=== PATIENT | male | born 1940 | race Caucasian/White ===

== ENCOUNTER 2016-06-29 14:29 | Inpatient (IN) | payer OTHER ==
[2016-06-28 17:46] LABS: HEMATOCRIT 39.4 % (40.0-51.0); HEMOGLOBIN 12.4 g/dL (13.6-17.8); MEAN CORPUS HGB CONC 31.5 g/dL (32.0-36.0); MEAN CORPUSCULAR HEMOGLOB 29.7 pg (26.0-34.0); MEAN CORPUSCULAR VOLUME 94.5 fL (80-100); MEAN PLATELET VOLUME 11.4 fL (9.2-13.0); PLATELET COUNT 175 10/3/uL (150-400); RBC DISTRIBUTION WIDTH 16.2 % (12.0-16.0); RED CELL COUNT 4.17 10/6/uL (4.7-6.1); WHITE BLOOD CELLS 6.6 10/3/uL (4.5-10.5)
[2016-06-28 17:57] LABS: A/G RATIO 0.5 (0.7-1.9); ALBUMIN 2.5 G/DL (3.5-5.0); ALKALINE PHOSPHATASE 264 U/L (45-117); BUN (BLOOD UREA NITROGEN) 24 MG/DL (6-23); CALCIUM, SERUM 8.8 MG/DL (8.5-10.4); CHLORIDE, SERUM 111 MMOL/L (96-112); CHOL/HDL RATIO(NOT ORDER) 1.9 (0-5); CHOLESTEROL 93 MG/DL (< 200); CO2 (CARBON DIOXIDE) 29 MMOL/L (24-34); CREATININE 0.93 MG/DL (0.70-1.30); GFR AFRICAN AMERICAN 93 ML/MIN (>=60); GFR NON AFRICAN AMERICAN 81 ML/MIN (>=60); GLOBULIN 5.2 G/DL (2.5-4.1); GLUCOSE, SERUM 61 MG/DL (60-99); HDL CHOLESTEROL 48 MG/DL (> 39); LDL CHOLESTEROL 30 MG/DL (< 130); NON-HDL CHOLESTEROL 45 MG/DL (< 160); POTASSIUM, SERUM 5.3 MMOL/L (3.5-5.3); SGOT(AST) 76 U/L (5-40); SGPT(ALT) 36 U/L (5-65); SODIUM, SERUM 149 MMOL/L (135-148); TOTAL BILIRUBIN 0.8 MG/DL (0-1.2); TOTAL PROTEIN 7.7 G/DL (6.0-8.5); TRIGLYCERIDE 77 MG/DL (< 150)
[2016-06-28 23:13] LABS: MICROALBUMIN, RANDOM URINE 1.6 MG/DL
--- NOTE | ~2016-06-29 | OP ---
Record Of Operation [facility] [address] [place]. [address] NAME: JAIMIE WATSON : 44 STATUS : ADM IN [facility]#: [id number] AGE: 76 ADM/REG DATE : 06/29/16 MR#: [id number] REPORT SERV DATE: 07/03/16 DICTATED BY: MIREYA VILLAGOMEZ DATE: 07/03/16 REPORT STATUS : Draft TRANSCRIBED BY: MODL DATE: 07/03/16 DATE OF PROCEDURE: 07/04/2016 PREOPERATIVE DIAGNOSIS: Gallstones with repeated hospitalizations for biliary pancreatitis and elevated liver function. POSTOPERATIVE DIAGNOSIS: Gallstones with repeated hospitalizations for biliary pancreatitis and elevated liver function with considerable intraabdominal adhesions. PROCEDURE: Laparoscopic cholecystectomy with intraoperative cholangiogram as well as lysis of adhesions. SURGEON: Mireya Villagomez M.D. ANESTHESIA: General endotracheal. ESTIMATED BLOOD LOSS: Nil. FLUIDS: Crystalloid. SPECIMEN: Gallbladder. DRAINS: A 15 fluted subhepatic. COMPLICATIONS: None immediate. CONDITION: Fair. INDICATIONS: Mr. Watson is a 76-year-old who is in poor health. 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 PEG feeding tube dependent. Suffers from diabetes. Previously, he has had appendectomy via a long right paramedian incision. He has been to the hospital twice in the last 6 weeks with abdominal pain, elevated liver and pancreatic enzymes, which have normalized. He has known gallstones. On this admission, Surgery was consulted and it was felt appropriate to proceed with cholecystectomy to try to prevent future bouts. After a thorough review of risks, benefits, options, side effects with the patient and family we are proceeding. PROCEDURE IN DETAIL: After being identified in preop holding, he was brought to the OR and positioned supine. General endotracheal anesthesia was induced. Time-out was performed. He was on Zosyn antibiotic therapy. The abdomen was prepped and draped sterilely. Somewhat above the most upper extent of the right paramedian incision, I infiltrated Marcaine. Made a transverse incision, dissected through the subcu and exposed the fascia midline. This was opened transversely, 0 Vicryl traction sutures were placed. We carefully dissected into the preperitoneal plane. We were ultimately able to identify and open the peritoneum and encounter what was palpably an open peritoneal cavity. Kellen trocar was inserted and Record Of Operation [facility] [address] [place]. [address] NAME: JAIMIE WATSON : 42 STATUS : ADM IN PAT#: [id number] AGE: 76 ADM/REG DATE : 06/29/16 MR#: [id number] REPORT SERV DATE: 07/03/16 DICTATED BY: MIREYA VILLAGOMEZ DATE: 07/03/16 REPORT STATUS : Draft TRANSCRIBED BY: MODL DATE: 07/03/16 anchored with the Vicryl and insufflated with 15 mm carbon dioxide pneumoperitoneum. 30 degree laparoscope was inserted within the peritoneal cavity. There was a cirrhotic liver evident. There was gallbladder evident. There was a considerable amount of adhesion in the left lateral where the PEG tube was. There was a considerable amount of adhesion inferiorly where the paramedian incision was, but on the right-hand side around the liver and right abdomen all was clear. There was adhesion in the right lower quadrant from the prior appendectomy, but we appeared to have an adequate open field to pursue a laparoscopic cholecystectomy. I palpated the abdomen, then we encountered the junction of the adhesions in the free peritoneal cavity, a bit to the right of the umbilicus, and at this point we advanced the local anesthetic needle. I could see entering the free peritoneal cavity clear of adhesions. At this point, we broadly infiltrated a transverse incision and then inserted a 5 mm trocar into the peritoneal cavity as visualized through laparoscope. Laparoscope was now moved to this position and after Marcaine infiltration and appropriate skin incisions, 5 mm trocars were inserted subcostally on the right, the midclavicular and anterior axillary line. We used a combination of scissor and an atraumatic grasper and dissected the adhesions between the greater omentum in the anterior abdominal wall around the subxiphoid access point. We were able to identify adherent fat. There was no bowel adhering. We carefully visualized for certainty and once we had thoroughly cleared the access path, a Kellen trocar was then placed. We now proceeded with the cholecystectomy. The patient was turned head up, foot down, rolled right side up. We grasped and elevated the gallbladder, which immediately tore and spilled green bile. There was no stone spillage. We regrasped, retracted and were able to expose what appeared to be the gallbladder cystic duct junction. This was encased in fat. Peritoneum, fat and the area the neck of the gallbladder was open, and I was able to identify and dissect rather small caliber cystic duct egressing the gallbladder. This was milked towards the gallbladder and an occlusive clip was placed across the neck. The gallbladder itself seemed to contain a large stone. Now I made a cystic ductotomy and advanced and anchored a cholangiogram catheter. Fluoroscopy was brought on the field. The cholangiography revealed a rather short cystic duct coursing into a somewhat generous common bile duct. There was rather prompt movement of contrast distal and into the duodenum. I did not see reflux into the pancreatic duct. With additional contrast instillation, I was able to opacify and identify the proper hepatic duct and the left and right hepatic duct. Again, the duct was somewhat generous, but there were no filling defects and there was prompt flow of contrast into the duodenum. I took fluoroscopy off the field and reinserted a laparoscopic instrumentation. Gallbladder was re-retracted. Cholangiogram catheter was removed, and the cystic duct was clipped occlusively x3 on the common bile duct side of cannulation and the cystic duct was divided at the point of cannulation. We now dissected in Calot's triangle and identified and dissected a dominant cystic artery. This was immediately behind the lymph node. This was dissected, clipped x3, divided between the middle clip and clip on gallbladder. Finally, I used hook electrocautery to dissect the gallbladder out of the gallbladder fossa. This went smoothly without getting in the liver or the gallbladder. Once the gallbladder was placed in an EndoCatch, it was extracted out the subxiphoid trocar path after fascial Record Of Operation [address] [place]. [address] NAME: JAIMIE WATSON : 44 STATUS : ADM IN [facility]#: [id number] AGE: 76 ADM/REG DATE : 06/29/16 MR#: [id number] REPORT SERV DATE: 07/03/16 DICTATED BY: MIREYA VILLAGOMEZ DATE: 07/03/16 REPORT STATUS : Draft TRANSCRIBED BY: MODL DATE: 07/03/16 and skin incisions were extended. We now reinserted the Kellen trocar, thoroughly suctioned all sub and suprahepatic fluid, and inspected the operative field. We had good clip positioning. No bleeding. No evidence of bile leak. We advanced a 15 fluted drain down the lateral right subcostal trocar, positioned it subhepatic and anchored it as I egressed the skin with a 3-0 nylon. The upper abdominal trocars were now removed with the visualization through laparoscope. There was no bleeding. Abdomen was desufflated and the right paraumbilical trocar was removed. Subxiphoid fascia had about 4-5 cm opening. This was closed with a running single stranded 0 PDS. Dermis was closed and the remaining skin incisions with a 4-0 Monocryl followed by Benzoin, Steri-Strips, and sterile dressing. Again, the drain was anchored with 3-0 nylon. Sterile dressing applied. Bulb suction was applied. Mr. Watson was recovered from his anesthetic, and transferred to recovery room in good condition. He did require pressors intraoperatively, but seemed to tolerate surgery well. XIMENA/JERONIMO Mireya Villagomez M.D. / [id number] CC: MD Wilfred Rivera III, D.O.
--- NOTE | ~2016-06-29 | CN ---
Consultation Report [facility] [address] [place]. [address] NAME: JAIMIE MCCORMICK : 44 STATUS : ADM IN [facility]#: [id number] AGE: 76 ADM/REG DATE : 06/29/16 MR#: [id number] REPORT SERV DATE: 07/01/16 DICTATED BY: JAYDEN LUNDY III DATE: 07/01/16 REPORT STATUS : Draft TRANSCRIBED BY: MODL DATE: 07/01/16 DATE OF CONSULTATION: 07/01/2016 REASON FOR CONSULT: 1. Abdominal pain. 2. Biliary pancreatitis, cholelithiasis, and possible obstructive jaundice. 3. Recommendation regarding surgical management. HISTORY OF PRESENT ILLNESS: We are asked to see this 76-year-old male in the hospital for the above reasons. The patient complains of a several-week history of intermittent episodes of upper abdominal discomfort and pain. He presented to the emergency room in the past for these symptoms. The patient complains of chills. He complains of nausea and vomiting. The patient presented to the emergency room and was found to have evidence for biliary pancreatitis. He was admitted to the patient on 06/29/2016. The patient states that he feels better at this time. The patient's lipase on admission was over 19,000. PAST MEDICAL HISTORY: 1. History of hearing deficit. 2. Coronary artery disease. 3. History of coronary artery bypass graft in the past. 4. History of PEG tube placement. 5. History of open appendectomy. 6. History of congestive heart failure. 7. History of pulmonary embolus and deep venous thrombosis in the past. 8. Hypertension. 9. History of COPD. PAST SURGERIES: Include cholecystectomy, open appendectomy through a long midline incision, and PEG tube placement. REVIEW OF SYSTEMS: The patient has a history of dysphagia, for which his PEG tube apparently was placed. He has not been using the PEG tube in some time. The patient has a history of diabetes, peripheral vascular disease, hyperlipidemia, and depression. SOCIAL HISTORY: No history of tobacco or alcohol use. The patient is retired. FAMILY HISTORY: Unremarkable. ALLERGIES: NONSTEROIDAL ANTI-INFLAMMATORY MEDICATIONS, PIROXICAM, AND METFORMIN. MEDICATIONS: At home include ProAir, albuterol, vitamin C, aspirin, Lipitor, iron, Proventil, insulin, Neurontin, Lasix, Antivert, Protonix, Florastor, and trazodone. Consultation Report [facility] [address] [place]. [address] NAME: JAIMIE MCCORMICK : 42 STATUS : ADM IN PAT#: [id number] AGE: 76 ADM/REG DATE : 06/29/16 MR#: [id number] REPORT SERV DATE: 07/01/16 DICTATED BY: JAYDEN LUNDY III DATE: 07/01/16 REPORT STATUS : Draft TRANSCRIBED BY: JERONIMO DATE: 07/01/16 OBJECTIVE PHYSICAL EXAMINATION: GENERAL: This is a male, in no acute distress. He is alert and oriented x3. VITAL SIGNS: Blood pressure 140/63, temperature 97.5, pulse 78. HEENT: Unremarkable. Cranial nerves II through XII are normal. LUNGS: Clear. CARDIAC: Normal. ABDOMEN: Soft and nontender. He has a long midline incision extending above the navel. He has a PEG tube in place in the left upper quadrant. EXTREMITIES: Normal. LABORATORY DATA: MRI of the abdomen, which I reviewed, shows gallstones. No common bile duct stones are seen. Gallbladder ultrasound on 06/30/2016 showed a 3.3-cm gallstone with thickening of the gallbladder wall with no biliary dilatation. CT scan of the abdomen and pelvis on 06/29/2016 showed a prominent common bile duct with a possible stone in the distal common bile duct at the ampulla concerning for choledocholith. There was haziness around the pancreas consistent with pancreatitis. The gallbladder was noted to contain a stone. It should be noted that the patient had a CT scan of the abdomen and pelvis apparently on ER visit on 06/08/2016. He was noted to have a gallstone at that time. The patient's electrolytes were normal. His lipase was initially elevated at greater than 19,000. It has now decreased to 1027. Total bilirubin is 1.9. It was 3.4 yesterday. White blood cell count 5.3. ASSESSMENT: 1. A 76-year-old male with resolving biliary pancreatitis. 2. Cholelithiasis and chronic cholecystitis. 3. Probable choledocholithiasis, with the patient most likely passing a common bile duct stone based on improving lipase, bilirubin, and absence of stones seen on MRI. 4. Chronic obstructive pulmonary disease. 5. Peripheral vascular disease. 6. History of previous open appendectomy through a midline incision with a previous percutaneous endoscopic gastrostomy tube placement. 7. Coronary artery disease. 8. Hyperlipidemia. 9. Depression. 10.Diabetes mellitus. PLAN: The patient is stable at this time. His pancreatitis is resolving. I believe the patient will need a laparoscopic cholecystectomy, possible laparotomy on this admission. I believe the ERCP could be deferred, but defer to Dr. Smith's judgment regarding this. If ERCP is not performed, then I believe we can proceed with a laparoscopic cholecystectomy with intraoperative cholangiogram, possible laparotomy. Dr. Villagomez will be covering for me after today and we will make the final decision regarding this. I have discussed this with the patient's family. The procedure will be a Consultation Report [address] [address] NAME: JAIMIE MCCORMICK : 42 STATUS : ADM IN [facility]#: [id number] AGE: 76 ADM/REG DATE : 06/29/16 MR#: [id number] REPORT SERV DATE: 07/01/16 DICTATED BY: JAYDEN LUNDY III DATE: 07/01/16 REPORT STATUS : Draft TRANSCRIBED BY: JERONIMO DATE: 07/01/16 laparoscopic cholecystectomy, possible laparotomy. This procedure, the risks, benefits, and alternatives, including, but not limited to the risk for bleeding, infection, common bile duct injury, bile leak, retained common bile stone, enterotomy, injury to any abdominal structure, the definite possible need for laparotomy, possible persistence of his symptoms unrelieved by surgery, possibly postoperative diarrhea or incisional hernia, and unforeseen complications including deep venous thrombosis, pulmonary embolus, myocardial infarction, stroke, pneumonia, and , have been fully and completely explained to them at length prior to surgery. The fact that this is a major operation with risk for major morbidity and mortality has been explained. Their questions have been answered. They understand the risks and agreed to surgery as planned. PAUL/JERONIMO Jayden Lundy III, M.D. / [id number] CC: MD Wilfred Rivera III, D.O.
--- NOTE | ~2016-06-29 | HP ---
History And Physical [place] [address] [facility] [place]. [address] NAME: JAIMIE MCCORMICK : 42 STATUS : ADM IN PAT#: [id number] AGE: 76 ADM/REG DATE : 06/29/16 MR#: [id number] REPORT SERV DATE: 06/29/16 DICTATED BY: GINA SILVERMAN DATE: 06/29/16 REPORT STATUS : Draft TRANSCRIBED BY: MODL DATE: 06/29/16 DATE OF ADMISSION: 06/29/2016 REASON FOR ADMISSION: Abdominal pain. HPI: This is a 76-year-old, male. He has a known history of CAD with CABG; history dysphasia in the past, required a PEG tube due to recurrent aspiration risk; chronic systolic heart failure, LVEF 46% in the past; history of PE and DVT; hypertension; history of ESBL and Pseudomonas and history of COPD. Known surgical history of foot surgery, bilateral knee surgery, cholecystectomy. Supposedly, per history, family states he does have his gallbladder. History of appendectomy, history of esophageal varices per prior dictation, PAD as well, carotid stenosis, vocal cord paralysis history. The patient comes in after weeks ago having similar presentation of postprandial burning and epigastric pain that he came here to the ER weeks ago and lipasemia of 2000. Had resolved spontaneously. Had a CT, did show gallstone. Gallbladder otherwise unremarkable, within good position. It was on 06/08/2014. Now, the patient comes in with positive chills. No fevers. Positive nausea. Positive bilious emesis. No diarrhea. No chest pain. No chest pressure. Positive shortness of breath. Positive productive yellow-green cough, with noted again epigastric abdominal pain. It has been occurring for the past day. Is worsened with food as a result, has a decreased appetite. Seen now to have a lipasemia of 19,000, AST over ALT 157/57, but alkaline phosphatase is 294. Troponin is negative. Initially, he was hypotensive in the 80s. Got a 0.5 L bolus. Now he is 120 systolic. The patient had a CT that is pending. Has not going to CT yet and was called for admission. The patient is hard of hearing. He is A and O x4/4. GCS of 15. MEDICAL AND PAST SURGICAL HISTORY: See above. REVIEW OF SYSTEMS: See HPI. Otherwise, negative. ALLERGIES: APPARENTLY METFORMIN AND SOME NSAIDS, BUT APPARENTLY THE PATIENT TAKES ASPIRIN AN OUTPATIENT. SOCIAL: Lives at home. Does not smoke actively, drink, or do drugs. Used to smoke many years ago and smoked cigars. FAMILY HISTORY: Hypertension in at least one parent. HOME MEDICATIONS: See MAR. We will continue what is relevant. OBJECTIVE: VITAL SIGNS: 120 systolic from 82, temp 98.6, 97 pulse, 18 respirations, 93% on room air. Now he is 98 on 2 L. History And Physical [address] [address] NAME: JAIMIE MCCORMICK : 44 STATUS : ADM IN [facility]#: [id number] AGE: 76 ADM/REG DATE : 06/29/16 MR#: [id number] REPORT SERV DATE: 06/29/16 DICTATED BY: GINA SILVERMAN DATE: 06/29/16 REPORT STATUS : Draft TRANSCRIBED BY: JERONIMO DATE: 06/29/16 GENERAL: No acute distress. HEENT: PERRLA. No scleral icterus. CARDIOVASCULAR: Regular rate and rhythm. No murmur auscultated. RESPIRATORY: Decreased breath sounds bibasilarly. Bibasilar crackles. ABDOMEN: Positive tenderness to palpation around the PEG site and superior to that epigastric region. EXTREMITIES: No edema. No ecchymosis. NEURO: GCS 15. A and O x4/4. PSYCH: Mildly anxious. LABORATORY DATA: White count is 10.3, hemoglobin 11.6 and 176,000 platelets. 4.3 potassium, 28 bicarbonate, 0.97 creatinine, 23 BUN, 143 sodium, 76 sugar. Lipasemia over 19,000. AST/ALT 157/57, alkaline phosphatase elevated 290, albumin 2.2. CT of abdomen and pelvis is pending. Chest x-ray, we will go ahead and get an x-ray which is pending. EKG, he has a normal sinus rhythm artifact. No ischemic ST-T changes noted. ASSESSMENT AND PLAN: 1. Sepsis, systemic inflammatory response syndrome criteria being met. Possible pneumonia. 2. Mild acute hypoxic respiratory failure. 3. Lipasemia with cholestatic transaminitis possibly due to a choledocholithiasis. 4. History of dysphagia with PEG. Apparently, the patient now wants the PEG to be removed. No longer has dysphagia per history. We would need a Speech Study to evaluate that veracity. 5. Clinical chronic obstructive pulmonary disease, acute exacerbation. I do not hear any active wheezing. Given productive cough, increased shortness of breath, did 3/3 GOLD criteria. PLAN: Admit this patient to Dr. Salvador's Cardiac Tele Service. The patient has recently been on 2 rounds of unknown antibiotics for UTI. As a result, I will place the patient empirically on IV Zosyn. Noted history of ESBL. Last time he was hospitalized, ID did not think was pathogenic, thought to be more colonized. Will not escalate if not profoundly septic to require Merrem at this time, would have low threshold to do so. Get a CT abdomen and pelvis, and a right upper quadrant ultrasound. He indeed does have choledocholithiasis. Will need ERCP and likely cholecystectomy. We will have GI evaluate at this time. We will swab for influenza. Placed on IV Solu-Medrol, Spiriva, bronchodilator protocol. Given other 0.5 L normal saline bolus, as indeed was 83 initially, now [address] on IV PPI. All questions were answered. It took well over 60 minutes to do reference, [employer] and [employer]. Please see rest of my orders including D5, LR, and n.p.o. except medicine and ice chips. WST/MODL History And Physical [address] [address] NAME: JAIMIE MCCORMICK : 42 STATUS : ADM IN PAT#: [id number] AGE: 76 ADM/REG DATE : 06/29/16 MR#: [id number] REPORT SERV DATE: 06/29/16 DICTATED BY: GINA SILVERMAN DATE: 06/29/16 REPORT STATUS : Draft TRANSCRIBED BY: MODL DATE: 06/29/16 Gina Silverman DO / [id number] CC: MD Wilfred Rivera III, D.OLeah
--- NOTE | ~2016-06-29 | IDS ---
Interim Discharge Summary [facility] [address] [place]. [address] NAME: JAIMIE MCCORIMCK : 44 STATUS : ADM IN PAT#: [id number] AGE: 76 ADM/REG DATE : 06/29/16 MR#: [id number] REPORT SERV DATE: 07/03/16 DICTATED BY: ANITRA SALVADOR DATE: 07/03/16 REPORT STATUS : Draft TRANSCRIBED BY: MODL DATE: 07/03/16 ADMISSION DATE: 06/29/2016 DISCHARGE DATE: REASON FOR ADMISSION: Acute biliary pancreatitis and cholelithiasis. HPI: Please refer Dr. Howard Webster's history and physical dated 06/29/2016 for complete details on the patient's admission. In brief, the patient was admitted to the Hospitalist Service for his biliary pancreatitis. HOSPITAL COURSE: Patient presented with a lipase level of around 19,000 and some epigastric abdominal pain. He had a CT scan of his abdomen and pelvis done without contrast, which showed a new prominence of the common bile duct up to 10 mm in diameter with what appears to be a 5 mm hyperdensity within the distal common duct concerning for an obstructing choledocholith. There is some mild haziness in that plane suggesting pancreatitis. There is distended gallbladder, dense atelectasis, and consolidation within the posterior basilar left lower lobe. Dr. Gus Webster had started him on Zosyn for possible sepsis and pneumonia, but we do not think this was the case. Urine culture was obtained, which showed ESBL E coli. Of note, he did have a positive ESBL E coli urine culture that was done by his PCP as the family relayed this information to us. He had a right upper quadrant ultrasound done after his CAT scan which showed a 3.3 cm gallstone with borderline thickening of the gallbladder wall, no dilatation was demonstrated. GI Medicine was consulted. [facility] had recommended getting an MRCP to tell that he probably passed a stone and did not have an obstructing stone at this point in time. MRCP just showed gallstones and the common bile duct is not dilated. With these findings, GI Medicine felt that an ERCP was not warranted and recommended consulting Dr. Raya to remove his gallbladder. The patient is scheduled today on the to have his gallbladder removed. He has been on Zosyn several days for his ESBL E coli urinary tract infection. The patient continues to have dysphagia and probable aspiration. He has not used his PEG tube in around a year. He continues to eat by mouth knowing that he continues to aspirate. He has not had a swallow study in over a year. I had a long discussion regarding code status, and the patient made it clear that he wishes to be a full code even though he knows he is placing himself at risk by eating everything by mouth. A modified barium swallow study scheduled to be done on Sunday, however, the family has indicated that they do not wish for that speech eval to delay his discharge and going home as they can do this as an outpatient. Further care per oncoming hospitalist to start on the . DISPOSITION: Patient will be anticipated discharge home on Sunday or Sunday pending his recovery from surgery and Dr. Raya' recommendations. He is scheduled to have modified barium swallow study done on Sunday, however, if he is okay to be discharged home from Dr. Raya' standpoint on Sunday, the family wishes this test to be done as an outpatient. Of note, we did start him on some tube feeds, which he is tolerating fine. Zosyn can be switched over to Augmentin for treatment of his ESBL E coli at the time of discharge. INTERIM SUMMARY DIAGNOSES: 1. Acute biliary pancreatitis. Interim Discharge Summary [address] [address] NAME: JAIMIE MCCORMICK : 44 STATUS : ADM IN [facility]#: [id number] AGE: 76 ADM/REG DATE : 06/29/16 MR#: [id number] REPORT SERV DATE: 07/03/16 DICTATED BY: ANITRA SALVADOR DATE: 07/03/16 REPORT STATUS : Draft TRANSCRIBED BY: MODL DATE: 07/03/16 2. Chronic obstructive pulmonary disease without exacerbation. 3. Dysphagia with possible vocal cord paralysis. 4. Extended-spectrum beta-lactamase E coli urinary tract infection. 5. History of deep venous thrombosis/pulmonary embolism. 6. Cardiomyopathy with an EF of 45%. PROCEDURES: Include CT scan of the abdomen and pelvis, right upper quadrant ultrasound, MRCP consistent with [facility] consultation with Dr. Raya. HELENA/JERONIMO Anitra Salvador MD / [id number] CC: MD Wilfred Rivera III, D.O.
--- NOTE | ~2016-06-29 | DS ---
Discharge Summary [facility] [address] [place]. [address] NAME: JAIMIE MCCORMICK : 44 STATUS : DIS IN PAT#: [id number] AGE: 76 ADM/REG DATE : 06/29/16 MR#: [id number] REPORT SERV DATE: 07/06/16 DICTATED BY: BRENNA OSULLIVAN DATE: 07/05/16 REPORT STATUS : Draft TRANSCRIBED BY: MODL DATE: 07/05/16 ADMISSION DATE: 06/29/2016 DISCHARGE DATE: 07/05/2016 DISCHARGE DIAGNOSES: 1. Acute biliary pancreatitis, resolved, status post laparoscopic cholecystectomy. 2. Chronic dysphagia. The patient already has had a PEG tube insertion, we started him on tube feeding after we confirmed with the modified barium swallow that the patient is having silent aspiration. I had a conversation with Dr. Salvador in a lengthy manner with the patient and family, but they still wished to be full code and eating by mouth. We are continuing the tube feeding only while he is the hospital and recommended tube feeding medically. 3. Chronic obstructive pulmonary disease. 4. Obesity. 5. Chronic heart failure, systolic dysfunction. FAN BALANCER: 1. Wilfred Smith MD. 2. Dr. Raya. PROCEDURE: Laparoscopic cholecystectomy. HISTORY OF PRESENT ILLNESS: This is a 76-year-old male patient, who has multiple medical problems including heart failure, dysphagia, aspiration, and COPD, who came to the hospital with abdominal pain. Please see the dictated H and P. HOSPITAL COURSE: He was admitted to the hospital with acute pancreatitis and was having evaluation for the pancreatitis etiology. Was found to have cholelithiasis and improved with conservative manner. The patient had a repeat MRI done and did not show anything or common bile duct stones. After his pancreatitis had stabilized, the patient was consulted to Dr. Raya. Dr. Todd did laparoscopic cholecystectomy on 07/04/2016. He is recovering very well. He does have a chronic dysphagia, but he was having oral feeding at home. He had a modified barium swallow on this admission, and it showed silent aspiration. Therefore, the patient was started on tube feeding during this hospitalization. Please see dictated interim discharge summary done by Dr. Salvador. According to Dr. Salvador, the patient and family had a long conversation with Dr. Salvador regarding his feeding issue and dysphagia issue and medical recommendation. The patient wishes to be full code but also he wants to have oral feeding even after all these recommendations. While he was here, we continued tube feeding only, nothing by mouth. The patient sees Dr. Cruz as an outpatient for his gastroenterology issue, needs to follow up with him for further recommendation. Maximized inpatient benefit, will be discharged to home. Discharge Summary [address] [place]. [address] NAME: JAIMIE MCCORMICK : 44 STATUS : DIS IN PAT#: [id number] AGE: 76 ADM/REG DATE : 06/29/16 MR#: [id number] REPORT SERV DATE: 07/06/16 DICTATED BY: BRENNA OSULLIVAN DATE: 07/05/16 REPORT STATUS : Draft TRANSCRIBED BY: JERONIMO DATE: 07/05/16 DISCHARGE MEDICATIONS: 1. Aspirin 81 mg once a day. 2. Lipitor 40 mg once at nighttime. 3. Ferrous sulfate 325 mg once a day. 4. Lasix 40 mg once a day. 5. Neurontin 100 mg twice a day. 6. Lantus was decreased to 16 units at bedtime. 7. Mag-Ox 400 mg once a day. 8. Protonix 40 mg once a day. 9. Florastor 250 mg once a day. 10.Trazodone 150 mg once at nighttime. 11.Albuterol as needed. 12.ProAir as needed. 13.Vitamin C once a day. 14.Lisinopril 2.5 mg once a day. 15.Antivert as needed. DISPOSITION: The patient is discharged to home. Initially, the patient was referred to correction facility for rehabilitation after the discharge, but the patient and family refused for correction facility rehabilitation. The patient is discharged to home with family. Time spent was more than 30 minutes on coordination and education. EKL/MODL Brenna Osullivan M.D. / [id number] CC: Lore Joy III, D.O.
--- NOTE | ~2016-06-29 | CN ---
Consultation Report [facility] [address] [place]. [address] NAME: JAIMIE WATSON : 44 STATUS : ADM IN [facility]#: [id number] AGE: 76 ADM/REG DATE : 06/29/16 MR#: [id number] REPORT SERV DATE: 06/30/16 DICTATED BY: BRAD FONG DATE: 06/30/16 REPORT STATUS : Draft TRANSCRIBED BY: MODL DATE: 06/30/16 GI CONSULTATION DATE OF CONSULTATION: 06/30/2016 REASON FOR CONSULTATION: Evaluation and management of question of choledocholithiasis, epigastric abdominal pain, elevated LFTs. HISTORY OF PRESENT ILLNESS: Mr. Watson is a 76-year-old male patient, who is known to Dr. Nando Cruz, whom we have seen in the past for history of dysphagia with PEG tube being placed. The patient and the daughter tell me that on this admission, he has been having abdominal pain, he awoke suddenly with it yesterday morning and he had nausea with vomiting, did not vomit anything that looked like blood. Per the daughter's report, his pain intensified, thus prompting him to come to the emergency room for further evaluation. She states that he had a similar episode several weeks ago of epigastric pain. ER visit showed elevated lipase, but this resolved on its own with the CT only showing a gallstone. He states that he has been having some chills, but no documented fevers. Persistent nausea. No shortness of breath, no chest pain. Positive for cough, which the daughter states is chronic. He states that the pain was made worse at times by eating. On admission, he had a lipase level of 19,441; lactate of 2.6; total bilirubin of 2.5, alkaline phosphatase 294, ALT 57, AST 157. CT scan of the abdomen, this was noncontrasted, showed prominence of the common bile duct to 10 mm with a 5 mm hyperdensity in the distal common bile duct/ampulla, consistent with gallstones, as well as inflammation around the pancreas, consistent with acute pancreatitis. He underwent a gallbladder ultrasound today, which showed a 3.3 cm gallstone with borderline thickening of the gallbladder wall with no biliary dilation being seen. On exam, he states his pain is improved. He is sore in his epigastric area, but states that the acute pains he was having that brought him in have resolved. I have discussed with the patient as well as the patient's daughter as well as Dr. Smith, who is present at the bedside, with a normal ultrasound, we will send him for an MRCP prior to any ERCP being done. I also discussed with him I will have a surgeon see him for possible cholecystectomy secondary to biliary pancreatitis while he is inpatient. Of note, the daughter is also asking that the patient's PEG tube be removed prior to discharge secondary to no use in over eight months. I did discuss with her that the last time they wanted to remove he failed a swallowing study and would recommend a speech path evaluation prior to any removal of his feeding tube. She states that even with the feeding tube, he is not going to use it and requests that it be removed for he can eat. PAST MEDICAL HISTORY: Positive for type 2 diabetes, hypertension, coronary artery disease, COPD, peripheral vascular disease, dyslipidemia, depression, oropharyngeal dysphagia, carotid stenosis, ESBL Pseudomonas UTI, DVT, systolic CHF, recurrent aspiration with PEG tube, PEG tube cellulitis, esophageal varices grade 1 on last endoscopy, pleural effusion with history of thoracentesis, vocal cord paralysis, and NH. PAST SURGICAL HISTORY: Foot surgery, bilateral knee surgery, appendectomy, PEG tube Consultation Report [address] [place]. [address] NAME: JAIMIE WATSON : 44 STATUS : ADM IN [facility]#: [id number] AGE: 76 ADM/REG DATE : 06/29/16 MR#: [id number] REPORT SERV DATE: 06/30/16 DICTATED BY: BRAD FONG DATE: 06/30/16 REPORT STATUS : Draft TRANSCRIBED BY: JERONIMO DATE: 06/30/16 placement, and CABG. SOCIAL HISTORY: Negative for alcohol. Negative for illicits. Negative for tobacco. He has a history of past tobacco use. He lives at home. 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 FAMILY HISTORY: Negative from a GI standpoint. ALLERGIES: NSAIDS, PIROXICAM, AND METFORMIN. HOME MEDICATIONS: ProAir HFA, albuterol, vitamin C, aspirin, Lipitor, ferrous sulfate, Lasix, Neurontin, Lantus, Proventil, magnesium oxide, Antivert, Protonix, Florastor, trazodone. REVIEW OF SYSTEMS: A 10-point review of systems obtained with pertinent positives addressed in the history of present illness. PERTINENT LABORATORY DATA: Sodium 144, potassium 4.8, BUN is 25, creatinine 1.15. White count 6.6, hemoglobin 10.8, hematocrit 34.3. PHYSICAL EXAMINATION: VITAL SIGNS: Temperature 97.5, pulse 68, respirations 16, and blood pressure 160/68. NEURO: Reveals an alert male, resting in bed. GENERAL: He is cooperative. He is in no obvious distress. He is awake, alert, and oriented x3. HEAD, EARS, EYES, NOSE, AND THROAT: Anicteric. Pupils are equal, round, reactive to light and accommodation. Normocephalic and atraumatic. NECK: No JVD. No palpable nodes. LUNGS: Coarse throughout with normal respiratory effort exhibited. Positive for cough, which is productive of green to yellow sputum. CARDIOVASCULAR SYSTEM: Regular rate and rhythm. ABDOMEN: Soft with tenderness to palpation in the epigastric region. PEG tube is in place without any abnormalities being seen. He has active bowel sounds. No organomegaly appreciated. EXTREMITIES: No edema. Normal distal pulses. SKIN: Warm, dry, and intact. ASSESSMENT: 1. Biliary pancreatitis. 2. Choledocholithiasis with likely him passing a stone. 3. Elevated LFTs secondary to #1 and #2. 4. Abdominal pain secondary to #1 and #2. 5. Systemic inflammatory response syndrome. 6. Dysphagia with PEG tube. Consultation Report [address] [place]. [address] NAME: JAIMIE WATSON : 44 STATUS : ADM IN [facility]#: [id number] AGE: 76 ADM/REG DATE : 06/29/16 MR#: [id number] REPORT SERV DATE: 06/30/16 DICTATED BY: BRAD FONG DATE: 06/30/16 REPORT STATUS : Draft TRANSCRIBED BY: JERONIMO DATE: 06/30/16 PLAN: 1. MRCP. 2. Surgical consult. 3. Plus or minus ERCP based on results of #1. 4. Continue antibiotic coverage. 5. Speech path to eval swallow prior to any discussion of PEG tube removal. 6. We will check LFTs today and in the morning as well as lipase. 7. We will hold heparin and keep him n.p.o. after midnight. KAT/MODL ALICE Grant / [id number] CC: MD Wilfred Rivera III, D.OLeah
[2016-06-29 13:48] LABS: BASOPHILS 0.2 %; BASOPHILS ABSOLUTE 0.02 10/3/uL (0.0-0.16); EOSINOPHILS 0.4 %; EOSINOPHILS ABSOLUTE 0.04 10/3/uL (0.0-0.53); HEMOGLOBIN 11.6 g/dL (13.6-17.8); IMMATURE GRANULOCYTES 0.3 %; IMMATURE GRANULOCYTES ABSOLUTE 0.03 10/3/uL (0.0-0.11); LYMPHOCYTES 8.3 %; LYMPHOCYTES ABSOLUTE 0.85 10/3/uL (0.67-4.30); MEAN CORPUS HGB CONC 31.4 g/dL (32.0-36.0); MEAN CORPUSCULAR HEMOGLOB 28.6 pg (26.0-34.0); MEAN PLATELET VOLUME 11.1 fL (9.2-13.0); MONOCYTES 5.4 %; MONOCYTES ABSOLUTE 0.56 10/3/uL (0.21-1.20); NEUTROPHILS 85.4 %; NEUTROPHILS ABSOLUTE 8.79 10/3/uL (2.02-8.40); PLATELET COUNT 176 10/3/uL (150-400); RED CELL COUNT 4.06 10/6/uL (4.7-6.1)
[2016-06-29 13:51] LABS: ER CBC TAT 0 Hrs 07 Mins; MEAN CORPUSCULAR VOLUME 91.1 fL (80-100); WHITE BLOOD CELLS 10.3 10/3/uL (4.5-10.5)
[2016-06-29 13:52] LABS: MANUAL DIFF NO %
[2016-06-29 13:56] LABS: INTERNATIONAL NORMAL RATI 1.1 UNITS (-); PARTIAL THROMBO TIME 29.7 SEC (22.5-37.2); PROTIME (NOT ORD) 13.9 SEC (12.0-14.5)
[2016-06-29 14:05] LABS: ALBUMIN 2.2 G/DL (3.5-5.0); BUN (BLOOD UREA NITROGEN) 23 MG/DL (6-23); CALCIUM, SERUM 8.2 MG/DL (8.5-10.4); CHEST PAIN PROFILE TAT 0 Hrs 21 Mins; CHLORIDE, SERUM 107 MMOL/L (96-112); CO2 (CARBON DIOXIDE) 28 MMOL/L (24-34); CREATININE 0.97 MG/DL (0.70-1.30); GFR AFRICAN AMERICAN 89 ML/MIN (>=60); GFR NON AFRICAN AMERICAN 77 ML/MIN (>=60); POTASSIUM, SERUM 4.3 MMOL/L (3.5-5.3); SGOT(AST) 157 U/L (5-40); SGPT(ALT) 57 U/L (5-65); SODIUM, SERUM 143 MMOL/L (135-148); TOTAL PROTEIN 7.7 G/DL (6.0-8.5); TROPONIN I 0.02 NG/ML (<0.05)
[2016-06-29 14:07] LABS: ALKALINE PHOSPHATASE 294 U/L (45-117); DIRECT BILIRUBIN 2.2 MG/DL (0.0-0.4); GLUCOSE, SERUM 76 MG/DL (60-99); INDIRECT BILIRUBIN(NOT ORDER) 0.3 MG/DL (0.1-0.9); TOTAL BILIRUBIN 2.5 MG/DL (0-1.2)
[~2016-06-29 14:29] MED LIST: ALBUTEROL0.083 % INH; APRES25 PO; ASAB PEG; ASAB PO; AUGMEN400S PO; BENEPROTEIN; BISR PR; CHLORTHALID50 MG OR; COLCH6 PO; COREG12 PEG; COREG12 PO; COREG3 PO; DEMA20 PEG; DEMA20 PO; DEMEDEX PEG; DILT-XR240 MG PO; DUONEB INH; FERROUS SULF325 M1 PO; FLORASTOR250 MG PEG; FLORASTOR250 MG PO; GLUCAGON IM; GLUCERNA PEG; GLUCOTRO10 PO; H2O; HALF81 PO; HYGROTON 25 MG25 MG OR; HYGROTON 25 MG25 MG PO; HYZAAR 100/25 T1 TAB PO; IBU400 PO; IMOD PEG; IMOD PO; IRON325 MG PO; ISMO20 MG PEG; ISMO20 MG PO; ISORDIL20 PO; KLOR-CON M2020 MEQ PO; L20 PO; LANTUS SC; LANTUSCART SC; LEVAQUIN750 MG PO; LEVEMFLXPN SC; LEVEMIR SC; LIPITOR40 PEG; LIPITOR40 PO; LOTE40 PO; LOVENOX40 SC; MAGNESIUM CITRATE; MAGNESIUM CITRATE PO; MAGOX4 PO; MCZ25 PO; MERREM500 MG IV; MIRALAXPKT PO; MOMUD PO; MULTIPLE VIT PO; MULTIVIT/MIN PEG; MULTIVIT/MIN PO; MVIUDL PEG; MVIUDL PO; MYLUD PEG; NEUR100 PO; NORCO1 TA1 PO; NORCO1 TA2 PO; NOVOLOG SC; PEP20 PO; PR12.5 PEG; PRILOSEC40 MG PO; PRIN2.5 PO; PRIN5 PO; PROTONI1 PEG; PROTONIX PEG; PROTONIX PO; REG5 PO; REST15 PEG; REST15 PO; SENTAB PO; SPIRO25 PO; SYMBICORT 160/41 INH INH; T PEG; TESS PO; TRAZ100 PEG; TRAZODONE150 MG PEG; TRAZODONE150 MG PO; ULTRAM50 PO; VITC500 PEG; VITC500 PO; [UNRECOGNIZED DRUG - OTHER] TOP
[2016-06-29] MEDS ORDERED: LANTUS SC (14:30)
[2016-06-29] MEDS ORDERED: PROAIR HFA INH (14:30)
[2016-06-29 19:34] LABS: % IRON SAT 36 % (20-50); IRON BINDING CAPACITY 173 MCG/DL (250-450); IRON, SERUM 63 MCG/DL (35-150)
[2016-06-29 19:54] LABS: INFLUENZA A SCREEN NEGATIVE (NEGATIVE); INFLUENZA B SCREEN NEGATIVE (NEGATIVE)
[2016-06-30 07:14] LABS: HEMATOCRIT 34.3 % (40.0-51.0); HEMOGLOBIN 10.8 g/dL (13.6-17.8); MEAN CORPUS HGB CONC 31.5 g/dL (32.0-36.0); MEAN CORPUSCULAR HEMOGLOB 29.2 pg (26.0-34.0); MEAN CORPUSCULAR VOLUME 92.7 fL (80-100); MEAN PLATELET VOLUME 11.8 fL (9.2-13.0); PLATELET COUNT 132 10/3/uL (150-400); RBC DISTRIBUTION WIDTH 16.3 % (12.0-16.0); WHITE BLOOD CELLS 6.6 10/3/uL (4.5-10.5)
[2016-06-30 07:23] LABS: BUN (BLOOD UREA NITROGEN) 25 MG/DL (6-23); CALCIUM, SERUM 8.4 MG/DL (8.5-10.4); CHLORIDE, SERUM 108 MMOL/L (96-112); CO2 (CARBON DIOXIDE) 27 MMOL/L (24-34); CREATININE 1.15 MG/DL (0.70-1.30); GFR AFRICAN AMERICAN 72 ML/MIN (>=60); GFR NON AFRICAN AMERICAN 62 ML/MIN (>=60); PHOSPHORUS, SERUM 3.6 MG/DL (2.5-4.5); SODIUM, SERUM 144 MMOL/L (135-148)
[2016-06-30 07:24] LABS: GLUCOSE, SERUM 237 MG/DL (60-99); POTASSIUM, SERUM 4.8 MMOL/L (3.5-5.3)
[2016-06-30 07:30] LABS: MANUAL DIFF YES %
[2016-06-30 07:56] LABS: BAND NEUTROPHILS 5 %; HYPOCHROMIA 1+ (3-10/OIF) (0-2/OIF); LYMPHOCYTES 8 %; LYMPHOCYTES ABSOLUTE (CALC) 0.53 10/3/uL (0.67-4.30); MONOCYTES 2 %; MONOCYTES ABSOLUTE (CALC) 0.13 10/3/uL (0.21-1.20); NEUTROPHILS ABSOLUTE (CALC) 5.94 10/3/uL (2.02-8.40); PLATELET ESTIMATE SLT DEC (ADEQUATE); SEGMENTED NEUTROPHIL (0) 85 %; TOTAL NUCLEATED CELLS 100
[2016-06-30 08:06] LABS: T PROTEIN (ELECT)(NOT OR 7.7 G/DL (6.0-8.5)
[2016-06-30 11:03] LABS: A/G 0.56 RATIO (0.9-2.10); ABNORMAL PEAK 1 0.56 G/DL; ABNORMAL PEAK 1 % 7.3 % (0); ALBUMIN (ELECTRO) 2.77 GM/DL (3.2-5.5); ALPHA 1 (ELECTRO) 0.31 GM/DL (0.1-0.4); ALPHA 2 (ELECTRO) 1.06 GM/DL (0.5-1.10); ALPHA 2 RELAT % 13.8 % (4.5-26.0); BETA GLOBULIN (SPE) 0.92 GM/DL (0.60-1.30); BETA RELATIVE % 11.9 % (9.0-22.0); GAMMA GLOBULIN (SPE) 2.64 G/DL (0.70-1.60); GAMMA RELAT % 34.3 % (6.0-22.0)
[2016-06-30 11:20] LABS: ALBUMIN RELAT % 25.2 %
[2016-06-30 15:14] LABS: ALBUMIN 1.9 G/DL (3.5-5.0)
[2016-06-30 15:18] LABS: INDIRECT BILIRUBIN(NOT ORDER) 0.4 MG/DL (0.1-0.9); TOTAL BILIRUBIN 3.4 MG/DL (0-1.2)
[2016-07-01 07:06] LABS: HEMATOCRIT 33.1 % (40.0-51.0); HEMOGLOBIN 10.6 g/dL (13.6-17.8); MEAN CORPUSCULAR HEMOGLOB 28.8 pg (26.0-34.0); MEAN PLATELET VOLUME 11.7 fL (9.2-13.0); PLATELET COUNT 117 10/3/uL (150-400); RBC DISTRIBUTION WIDTH 16.2 % (12.0-16.0); RED CELL COUNT 3.68 10/6/uL (4.7-6.1); WHITE BLOOD CELLS 5.3 10/3/uL (4.5-10.5)
[2016-07-01 07:07] LABS: MANUAL DIFF YES %; MEAN CORPUSCULAR VOLUME 89.9 fL (80-100)
[2016-07-01 07:14] LABS: INTERNATIONAL NORMAL RATI 1.5 UNITS (-)
[2016-07-01 07:15] LABS: PROTIME (NOT ORD) 18.3 SEC (12.0-14.5)
[2016-07-01 07:21] LABS: ALBUMIN 1.9 G/DL (3.5-5.0); CALCIUM, SERUM 8.5 MG/DL (8.5-10.4); CHLORIDE, SERUM 109 MMOL/L (96-112); CO2 (CARBON DIOXIDE) 26 MMOL/L (24-34); CREATININE 1.19 MG/DL (0.70-1.30); GFR AFRICAN AMERICAN 69 ML/MIN (>=60); GFR NON AFRICAN AMERICAN 60 ML/MIN (>=60); GLUCOSE, SERUM 215 MG/DL (60-99); PHOSPHORUS, SERUM 3.1 MG/DL (2.5-4.5); POTASSIUM, SERUM 4.3 MMOL/L (3.5-5.3); SGPT(ALT) 48 U/L (5-65); SODIUM, SERUM 144 MMOL/L (135-148)
[2016-07-01 07:23] LABS: ALKALINE PHOSPHATASE 208 U/L (45-117); BUN (BLOOD UREA NITROGEN) 31 MG/DL (6-23); DIRECT BILIRUBIN 1.4 MG/DL (0.0-0.4); INDIRECT BILIRUBIN(NOT ORDER) 0.5 MG/DL (0.1-0.9); SGOT(AST) 90 U/L (5-40); TOTAL BILIRUBIN 1.9 MG/DL (0-1.2)
[2016-07-01 08:36] LABS: BAND NEUTROPHILS 5 %; EOSINOPHILS 2 %; EOSINOPHILS ABSOLUTE (CALC) 0.11 10/3/uL (0.0-0.53); LYMPHOCYTES 5 %; LYMPHOCYTES ABSOLUTE (CALC) 0.27 10/3/uL (0.67-4.30); MONOCYTES 1 %; MONOCYTES ABSOLUTE (CALC) 0.05 10/3/uL (0.21-1.20); NEUTROPHILS ABSOLUTE (CALC) 4.88 10/3/uL (2.02-8.40); SEGMENTED NEUTROPHIL (0) 87 %; TOTAL NUCLEATED CELLS 100
[2016-07-01 08:37] LABS: BURR CELLS 1+ (3-10/OIF) (0-2/OIF); PLATELET ESTIMATE SLT DEC (ADEQUATE)
[2016-07-01 08:38] LABS: HELMET CELLS OCC (0-2/OIF); POLYCHROMASIA 1+ (2-5/OIF) (0-1/OIF)
[2016-07-02 07:51] LABS: HEMATOCRIT 32.4 % (40.0-51.0); HEMOGLOBIN 10.3 g/dL (13.6-17.8); MEAN CORPUS HGB CONC 31.8 g/dL (32.0-36.0); MEAN CORPUSCULAR HEMOGLOB 28.6 pg (26.0-34.0); MEAN PLATELET VOLUME 12.3 fL (9.2-13.0); PLATELET COUNT 133 10/3/uL (150-400); RBC DISTRIBUTION WIDTH 16.5 % (12.0-16.0); WHITE BLOOD CELLS 5.4 10/3/uL (4.5-10.5)
[2016-07-02 08:00] LABS: MANUAL DIFF YES %
[2016-07-02 08:56] LABS: A/G RATIO 0.4 (0.7-1.9); ALKALINE PHOSPHATASE 207 U/L (45-117); BUN (BLOOD UREA NITROGEN) 31 MG/DL (6-23); CALCIUM, SERUM 8.2 MG/DL (8.5-10.4); CHLORIDE, SERUM 112 MMOL/L (96-112); CO2 (CARBON DIOXIDE) 23 MMOL/L (24-34); CREATININE 1.11 MG/DL (0.70-1.30); GFR AFRICAN AMERICAN 75 ML/MIN (>=60); GFR NON AFRICAN AMERICAN 65 ML/MIN (>=60); GLOBULIN 4.5 G/DL (2.5-4.1); GLUCOSE, SERUM 230 MG/DL (60-99); SGOT(AST) 59 U/L (5-40); SGPT(ALT) 44 U/L (5-65); SODIUM, SERUM 146 MMOL/L (135-148); TOTAL PROTEIN 6.5 G/DL (6.0-8.5)
[2016-07-02 10:10] LABS: BAND NEUTROPHILS 2 %; LYMPHOCYTES 6 %; LYMPHOCYTES ABSOLUTE (CALC) 0.32 10/3/uL (0.67-4.30); MONOCYTES 2 %; MONOCYTES ABSOLUTE (CALC) 0.11 10/3/uL (0.21-1.20); NEUTROPHILS ABSOLUTE (CALC) 4.97 10/3/uL (2.02-8.40); PLATELET ESTIMATE SLT DEC (ADEQUATE); POLYCHROMASIA 1+ (2-5/OIF) (0-1/OIF); SEGMENTED NEUTROPHIL (0) 90 %; TEARDROP SHAPED RBCS OCC (0-2/OIF); TOTAL NUCLEATED CELLS 100
[2016-07-03 07:26] LABS: BASOPHILS 0.2 %; BASOPHILS ABSOLUTE 0.01 10/3/uL (0.0-0.16); EOSINOPHILS 0 %; HEMATOCRIT 32.7 % (40.0-51.0); HEMOGLOBIN 10.5 g/dL (13.6-17.8); IMMATURE GRANULOCYTES 0.2 %; IMMATURE GRANULOCYTES ABSOLUTE 0.01 10/3/uL (0.0-0.11); LYMPHOCYTES 22.1 %; LYMPHOCYTES ABSOLUTE 1.02 10/3/uL (0.67-4.30); MEAN CORPUS HGB CONC 32.1 g/dL (32.0-36.0); MEAN CORPUSCULAR HEMOGLOB 29.3 pg (26.0-34.0); MEAN CORPUSCULAR VOLUME 91.3 fL (80-100); MEAN PLATELET VOLUME 10.9 fL (9.2-13.0); MONOCYTES 4.3 %; NEUTROPHILS 73.2 %; NEUTROPHILS ABSOLUTE 3.38 10/3/uL (2.02-8.40); PLATELET COUNT 105 10/3/uL (150-400); RBC DISTRIBUTION WIDTH 16.3 % (12.0-16.0); RED CELL COUNT 3.58 10/6/uL (4.7-6.1); WHITE BLOOD CELLS 4.6 10/3/uL (4.5-10.5)
[2016-07-03 07:27] LABS: MANUAL DIFF NO %
[2016-07-03 07:46] LABS: BUN (BLOOD UREA NITROGEN) 28 MG/DL (6-23); CALCIUM, SERUM 8.2 MG/DL (8.5-10.4); CHLORIDE, SERUM 111 MMOL/L (96-112); CREATININE 1.06 MG/DL (0.70-1.30); GFR AFRICAN AMERICAN 80 ML/MIN (>=60); GFR NON AFRICAN AMERICAN 69 ML/MIN (>=60); PHOSPHORUS, SERUM 1.9 MG/DL (2.5-4.5); POTASSIUM, SERUM 4.2 MMOL/L (3.5-5.3); SODIUM, SERUM 147 MMOL/L (135-148)
[2016-07-03 07:47] LABS: CO2 (CARBON DIOXIDE) 30 MMOL/L (24-34); GLUCOSE, SERUM 111 MG/DL (60-99)
[2016-07-04 06:12] LABS: BASOPHILS 0.2 %; BASOPHILS ABSOLUTE 0.01 10/3/uL (0.0-0.16); EOSINOPHILS 0.2 %; EOSINOPHILS ABSOLUTE 0.01 10/3/uL (0.0-0.53); HEMOGLOBIN 10.4 g/dL (13.6-17.8); IMMATURE GRANULOCYTES 0.2 %; IMMATURE GRANULOCYTES ABSOLUTE 0.01 10/3/uL (0.0-0.11); LYMPHOCYTES 12.3 %; MANUAL DIFF NO %; MEAN CORPUS HGB CONC 31.5 g/dL (32.0-36.0); MEAN CORPUSCULAR HEMOGLOB 29.2 pg (26.0-34.0); MEAN CORPUSCULAR VOLUME 92.7 fL (80-100); MEAN PLATELET VOLUME 10.9 fL (9.2-13.0); MONOCYTES 5.1 %; MONOCYTES ABSOLUTE 0.33 10/3/uL (0.21-1.20); NEUTROPHILS ABSOLUTE 5.37 10/3/uL (2.02-8.40); PLATELET COUNT 89 10/3/uL (150-400); RBC DISTRIBUTION WIDTH 16.5 % (12.0-16.0); RED CELL COUNT 3.56 10/6/uL (4.7-6.1); WHITE BLOOD CELLS 6.5 10/3/uL (4.5-10.5)
[2016-07-04 06:27] LABS: A/G RATIO 0.4 (0.7-1.9); ALBUMIN 1.7 G/DL (3.5-5.0); ALKALINE PHOSPHATASE 144 U/L (45-117); BUN (BLOOD UREA NITROGEN) 28 MG/DL (6-23); CALCIUM, SERUM 7.8 MG/DL (8.5-10.4); CHLORIDE, SERUM 110 MMOL/L (96-112); CO2 (CARBON DIOXIDE) 26 MMOL/L (24-34); CREATININE 1.19 MG/DL (0.70-1.30); GFR AFRICAN AMERICAN 69 ML/MIN (>=60); GFR NON AFRICAN AMERICAN 60 ML/MIN (>=60); GLUCOSE, SERUM 168 MG/DL (60-99); PHOSPHORUS, SERUM 2.5 MG/DL (2.5-4.5); POTASSIUM, SERUM 4.4 MMOL/L (3.5-5.3); SGOT(AST) 38 U/L (5-40); SGPT(ALT) 34 U/L (5-65); SODIUM, SERUM 145 MMOL/L (135-148); TOTAL PROTEIN 5.7 G/DL (6.0-8.5)
[2016-07-05 06:36] LABS: BASOPHILS 0.3 %; BASOPHILS ABSOLUTE 0.02 10/3/uL (0.0-0.16); EOSINOPHILS 2.4 %; EOSINOPHILS ABSOLUTE 0.18 10/3/uL (0.0-0.53); HEMATOCRIT 30.5 % (40.0-51.0); HEMOGLOBIN 9.5 g/dL (13.6-17.8); IMMATURE GRANULOCYTES 0.7 %; IMMATURE GRANULOCYTES ABSOLUTE 0.05 10/3/uL (0.0-0.11); LYMPHOCYTES 17.2 %; LYMPHOCYTES ABSOLUTE 1.29 10/3/uL (0.67-4.30); MANUAL DIFF NO %; MEAN CORPUS HGB CONC 31.1 g/dL (32.0-36.0); MEAN CORPUSCULAR HEMOGLOB 28.4 pg (26.0-34.0); MEAN CORPUSCULAR VOLUME 91.3 fL (80-100); MEAN PLATELET VOLUME 11.5 fL (9.2-13.0); MONOCYTES 4.5 %; MONOCYTES ABSOLUTE 0.34 10/3/uL (0.21-1.20); NEUTROPHILS 74.9 %; NEUTROPHILS ABSOLUTE 5.62 10/3/uL (2.02-8.40); PLATELET COUNT 75 10/3/uL (150-400); RBC DISTRIBUTION WIDTH 16.2 % (12.0-16.0); RED CELL COUNT 3.34 10/6/uL (4.7-6.1); WHITE BLOOD CELLS 7.5 10/3/uL (4.5-10.5)
[2016-07-05 07:12] LABS: PLATELET ESTIMATE DEC (ADEQUATE)
[2016-07-05 07:13] LABS: HYPOCHROMIA 1+ (3-10/OIF) (0-2/OIF)
[2016-07-05] MEDS ORDERED: LOTRIMIN-MYCELE15 GM TOP (09:18)
[2016-07-05] MEDS ORDERED: L40 PO (09:19)
[2016-07-05] MEDS ORDERED: NYSTATPOW TOP (09:20)
[2016-07-05 09:35] LABS: BUN (BLOOD UREA NITROGEN) 25 MG/DL (6-23); CALCIUM, SERUM 7.6 MG/DL (8.5-10.4); CHLORIDE, SERUM 109 MMOL/L (96-112); CO2 (CARBON DIOXIDE) 27 MMOL/L (24-34); CREATININE 0.98 MG/DL (0.70-1.30); GFR AFRICAN AMERICAN 88 ML/MIN (>=60); GFR NON AFRICAN AMERICAN 76 ML/MIN (>=60); PHOSPHORUS, SERUM 1.9 MG/DL (2.5-4.5); POTASSIUM, SERUM 4.4 MMOL/L (3.5-5.3); SODIUM, SERUM 145 MMOL/L (135-148)
[2016-07-05 09:37] LABS: GLUCOSE, SERUM 77 MG/DL (60-99)
[2016-12-22] MEDS ORDERED: ZANTAC150 MG PO (16:07)
[2016-12-22] MEDS ORDERED: MIRALAX POWDER1 PKT PO (16:07)
[2016-12-22] MEDS ORDERED: PROBIOTIC PO (16:08)
[2016-12-22] MEDS ORDERED: SYMBICORT 160/41 INH INH (16:09)
[2016-12-22] MEDS ORDERED: LIPITOR40 PO (16:09)
[2016-12-22] MEDS ORDERED: ALLERGY OTC PO (16:11)
[2016-12-22] MEDS ORDERED: ZOFRAN4 PO (16:13)
[2016-12-22] MEDS ORDERED: AT25 PO (16:14)
[2016-12-22] MEDS ORDERED: TRIAMCINOLONE C80 GM TOP (16:15)
[2016-12-28] MEDS ORDERED: ZOFRAN4 PO (10:39)
[2016-12-28] MEDS ORDERED: NORCO1 TA2 PO (10:40)
== END 2016-07-05 12:28 | disposition home health service (06) | DRG 417 ==
LOC: ER 14:29 → 7NO 17:24
PROVIDERS: Emergency Medicine; Family Medicine; Internal Medicine; Nurse Practitioner Family
PROC: 0FT44ZZ Resection of Gallbladder, Percutaneous Endoscopic Approach (ICD-10-PCS; principal; 2016-07-04)
PROC: BF131ZZ Fluoroscopy of Gallbladder and Bile Ducts using Low Osmolar Contrast (ICD-10-PCS; 2016-07-04)
DX: K85.10 Biliary acute pancreatitis without necrosis or infection (principal); J96.01 Acute respiratory failure with hypoxia; J44.1 Chronic obstructive pulmonary disease with (acute) exacerbation; R13.10 Dysphagia, unspecified; I50.22 Chronic systolic (congestive) heart failure; N39.0 Urinary tract infection, site not specified; E66.9 Obesity, unspecified; Z68.32 Body mass index [BMI] 32.0-32.9, adult; Z95.1 Presence of aortocoronary bypass graft; E11.9 Type 2 diabetes mellitus without complications; I73.9 Peripheral vascular disease, unspecified; Z86.711 Personal history of pulmonary embolism; Z86.718 Personal history of other venous thrombosis and embolism; Z79.82 Long term (current) use of aspirin; F32.9 Major depressive disorder, single episode, unspecified; B96.20 Unspecified Escherichia coli [E. coli] as the cause of diseases classified elsewhere
CPT/HCPCS: 36415; 71010; 74176; 74181; 74230; 74300; 76705; 80048; 80053; 80061; 80076; 82043; 82150; 82962; 83036; 83540; 83550; 83605; 83690; 83735; 83880; 84100; 84155; 84156; 84165; 84166; 84443; 84484; 85025; 85027; 85610; 85730; 87040; 87077; 87086; 87186; 87205; 87449; 87804; 88304; 92611-GN; 93005; 94640; 97162-GP; 97164-GP; 99285; A9270-GY; C9113; G0463; J1170; J2250; J2370; J2405; J2543; J2710; J2920; J3010; Q9967